=== PATIENT | male | born 1950 | race Caucasian/White ===

== ENCOUNTER → 2018-04-21 | Day surgery (SDC) | payer MEDICARE, OTHER ==
[~2018-04-21] MED LIST: Brimonidine 0.2% Ophth Soln 5 ML Bottle EYERT SCH; Phenylephrine 2.5% Ophth Soln 2 ML Bot EYERT SCH; Tropicamide 1% Ophth Soln 3 ML Bottle EYERT SCH
[2018-04-21] MEDS: Apraclonidine 0.5% Ophth Soln 5 ML Bot EYERT SCH ×2 (11:25→12:02)
[2018-04-21 12:14] VITALS: BP 136/85
== END ==
LOC: JD.SDS 11:18
PROVIDERS: ATTEND Ophthalmology
DX: H26.491 Other secondary cataract, right eye (principal); H40.1132 Primary open-angle glaucoma, bilateral, moderate stage; E78.00 Pure hypercholesterolemia, unspecified; H91.90 Unspecified hearing loss, unspecified ear; Z79.899 Other long term (current) drug therapy

== ENCOUNTER 2021-03-09 10:17 | Emergency (ER) | payer MEDICARE ==
--- NOTE | 2021-03-09 11:47 | CR ---
Abdominal series: PA view of the chest was obtained as well as upright and supine views of the abdomen. Comparison: No prior abdominal or chest x-rays available. Slight areas of density are seen within both mid to lower lungs. Small symmetric nodular densities are seen within both lung bases most likely due to minimal nipple densities. Left-sided infusion port is seen. Sternotomy wires are noted. Heart size is within normal limits. No free air is seen. Bowel gas pattern is normal. No abnormal soft tissue calcifications are seen. Phleboliths are seen within the pelvis. Bony structures show scattered degenerative endplate spurring. Impression: 1. Findings within the chest which are most likely incidental. Follow-up chest x-ray recommended in 4-6 months to make sure findings as described above remain stable. 2. Other findings as noted above. Nothing acute is otherwise seen on abdominal series. Diagnostic code #2
--- NOTE | 2021-03-09 12:28 | EDM.PDOC ---
ED HPI GENERAL MEDICAL PROBLEM - General Chief Complaint: Abdominal Pain Stated Complaint: ABDOMINAL PAIN/CANCER PT Time Seen by Provider: 03/09/21 10:32 Source of Information: Reports: Patient History Limitations: Reports: No Limitations - History of Present Illness INITIAL COMMENTS - FREE TEXT/NARRATIVE: The patient presents with lower abdominal pain and constipation. The patient was recently diagnosed with lung cancer in January and just finished chemo and radiation. He is in fentanyl patch and hydrocodone for an esophageal burn from radiation. He has been taking dulcolax but has not had a bowel movement for a few days. He has abdominal cramping at times. He has some liquid stool at times but nothing else will come out. He has no fever, chills, cough, chest pa in, nausea or vomiting. Onset: Gradual Duration: Day(s): Location: Reports: Abdomen Quality: Reports: Sharp Severity: Severe Improves with: Reports: None Worsens with: Reports: None Associated Symptoms: Reports: No Other Symptoms Abdominal Pain Score (Numeric/FACES): 8 - Related Data Allergies Allergy/AdvReac Type Severity Reaction Status Date / Time brimonidine [From Alphagan P] Allergy Cannot Verified 03/09/21 10:31 Remember Home Meds: Home Meds Albuterol Sulfate [Albuterol Sulfate HFA] 03/09/21 [History] Apixaban [Eliquis] 10 mg PO 03/09/21 [History] CISplatin 100 mg IV 03/09/21 [History] Etoposide [Toposar] 03/09/21 [History] Hydrocodone/Acetaminophen [Hydrocodone-Acetamin 10-325/15] 15 ml PO 03/09/21 [History] Latanoprost [Xalatan] 2.5 ml OP 03/09/21 [History] Losartan/Hydrochlorothiazide [Losartan-HCTZ 50-12.5 MG] 03/09/21 [History] Metoclopramide [Reglan] 5 mg PO Q8H PRN 03/09/21 [History] Ondansetron [Zofran ODT] 8 mg PO 03/09/21 [History] Promethazine [Phenadoz] 12.5 mg .XX 03/09/21 [History] Sildenafil Citrate [Viagra] 03/09/21 [History] Timolol Maleate 5 ml OP 03/09/21 [History] fentaNYL [Fentanyl] 25 mcg TD ASDIRECTED 03/09/21 [History] Past Medical History HEENT History: Reports: Cataract, Glaucoma, Impaired Vision Cardiovascular History: Reports: Bypass, Hypertension Other Cardiovascular History: 2000 bipass x 2 Respiratory History: Reports: SOB Gastrointestinal History: Reports: Chronic Constipation Genitourinary History: Reports: None Musculoskeletal History: Reports: Arthritis, Back Pain, Chronic, Neck Pain, Chronic Neurological History: Reports: None Psychiatric History: Reports: None Endocrine/Metabolic History: Reports: None Hematologic History: Reports: None Immunologic History: Reports: None Oncologic (Cancer) History: Reports: Lung Dermatologic History: Reports: None - Infectious Disease History Infectious Disease History: Reports: Chicken Pox - Past Surgical History Respiratory Surgical History: Reports: Lung Biopsies GI Surgical History: Reports: Appendectomy Social & Family History - Family History Family Medical History: No Pertinent Family History HEENT: Reports: None Cardiac: Reports: CAD, [place] Respiratory: Reports: None GI: Reports: None : Reports: None OBGYN: Reports: None Musculoskeletal: Reports: None Neurological: Reports: None Psychiatric: Reports: None Endocrine/Metabolic: Reports: None Hematologic: Reports: B12 Deficiency Immunologic: Reports: None Oncologic: Reports: Bladder, Lung - Tobacco Use Tobacco Use Status *Q: Former Tobacco User Used Tobacco, but Quit: Yes Month/Year Tobacco Last Used: 01/2021 - Caffeine Use Caffeine Use: Reports: None - Recreational Drug Use Recreational Drug Use: No ED ROS GENERAL - Review of Systems Review Of Systems: See Below Constitutional: Reports: No Symptoms HEENT: Reports: No Symptoms Respiratory: Reports: No Symptoms Cardiovascular: Reports: No Symptoms Endocrine: Reports: No Symptoms GI/Abdominal: Reports: Abdominal Pain, Constipation. Denies: Nausea, Vomiting : Reports: No Symptoms Musculoskeletal: Reports: No Symptoms Skin: Reports: No Symptoms ED EXAM, GI/ABD - Physical Exam Exam: See Below Exam Limited By: No Limitations General Appearance: Alert, No Apparent Distress Ears: Normal External Exam Nose: Normal Inspection Head: Atraumatic, Normocephalic Neck: Normal Inspection Respiratory/Chest: No Respiratory Distress, Lungs Clear, Normal Breath Sounds Cardiovascular: Regular Rate, Rhythm, No Edema, No Murmur GI/Abdominal Exam: Soft, No Organomegaly, No Mass, Tender (Moderate tenderness to the lower abdomen) Course - Vital Signs Last Recorded V/S: Last Vital Signs Temp 96.9 F 04/09/21 10:43 Pulse 100 03/09/21 10:43 Resp 20 03/09/21 10:43 BP 120/89 03/09/21 10:43 Pulse Ox 97 03/09/21 10:43 - Orders/Labs/Meds Orders: Active Orders 24 hr Category Date Time Status Enema [RC] ASDIRECTED Care 03/09/21 11:42 Active Labs: Laboratory Tests 03/09/21 03/09/21 Range/Units 11:19 11:19 WBC 3.31 L (4.23-9.07) K/mm3 RBC 3.91 L (4.63-6.08) M/mm3 Hgb 11.0 L (13.7-17.5) gm/dl Hct 34.3 L (40.1-51.0) % MCV 87.7 (79.0-92.2) fl MCH 28.1 (25.7-32.2) pg MCHC 32.1 L (32.2-35.5) g/dl RDW Std Deviation 52.3 H (35.1-43.9) fL Plt Count 163 (163-337) K/mm3 MPV 9.7 (9.4-12.3) fl Neut % (Auto) 94.0 H (34.0-67.9) % Lymph % (Auto) 2.7 L (21.8-53.1) % [place] % (Auto) 3.0 L (5.3-12.2) % Eos % (Auto) 0 L (0.8-7.0) Baso % (Auto) 0.3 (0.1-1.2) % Neut # (Auto) 3.11 (1.78-5.38) K/mm3 Lymph # (Auto) 0.09 L (1.32-3.57) K/mm3 [place] # (Auto) 0.10 L (0.30-0.82) K/mm3 Eos # (Auto) 0.00 L (0.04-0.54) K/mm3 Baso # (Auto) 0.01 (0.01-0.08) K/mm3 Manual Slide Review Abnormal smear Sodium 136 (136-145) mEq/L Potassium 4.4 (3.5-5.1) mEq/L Chloride 98 (98-107) mEq/L Carbon Dioxide 25 (21-32) mEq/L Anion Gap 17.4 H (5-15) BUN 20 H (7-18) mg/dL Creatinine 1.2 (0.7-1.3) mg/dL Est Cr Clr Drug Dosing 62.87 mL/min Estimated GFR (MDRD) 60 (>60) mL/min BUN/Creatinine Ratio 16.7 (14-18) Glucose 190 H (80-115) mg/dL Calcium 8.7 (8.5-10.1) mg/dL Total Bilirubin 0.8 (0.2-1.0) mg/dL AST 21 (15-37) U/L ALT 38 (16-63) U/L Alkaline Phosphatase 70 (46-116) U/L Total Protein 6.9 (6.4-8.2) g/dl Albumin 3.1 L (3.4-5.0) g/dl Globulin 3.8 gm/dL Albumin/Globulin Ratio 0.8 L (1-2) Lipase 30 L (73-393) U/L - Re-Assessments/Exams Free Text/Narrative Re-Assessment/Exam: 03/09/21 12:26 I ordered a CXR with abdominal series and labs. His CXR shows nothing acute. He has moderate amount of stool. I have ordered a soap suds enema. His WBC was low at 3.31. His Hgb was low at 11. His platelets were normal. His anion gap was elevated at 17.4. His glucose was 190. 03/09/21 13:13 He had great results with the soap suds enema. He feels good. I will discharge him home. Departure - Departure Time of Disposition: 13:15 Disposition: Home, Self-Care 01 Condition: Good Clinical Impression: Constipation Qualifiers: Constipation type: drug induced constipation Qualified Code(s): K59.03 - Drug induced constipation - Discharge Information *PRESCRIPTION DRUG MONITORING PROGRAM REVIEWED*: Not Applicable *COPY OF PRESCRIPTION DRUG MONITORING REPORT IN PATIENT MOMO: Not Applicable Referrals: Kavon Herman MD [Primary Care Provider] - 1 Week Forms: ED Department Discharge Additional Instructions: Drink plenty of fluids. Take the colace as directed. Please return if you are worse. Sepsis Event Note (ED) - Evaluation Sepsis Screening Result: No Definite Risk - Focused Exam Vital Signs: Vital Signs Temp Pulse Resp BP Pulse Ox 03/09/21 10:43 96.9 F 100 20 120/89 97 - My Orders Last 24 Hours: My Active Orders 03/09/21 11:42 Enema [RC] ASDIRECTED - Assessment/Plan Last 24 Hours: My Active Orders 03/09/21 11:42 Enema [RC] ASDIRECTED
[2021-03-09 13:17] VITALS: BP 118/88; PULSE 100
== END 2021-03-09 13:27 | disposition home or self-care (01) ==
LOC: JD.ED 10:17
DX: K59.03 Drug induced constipation (principal); I10 Essential (primary) hypertension; Z79.01 Long term (current) use of anticoagulants; Z79.899 Other long term (current) drug therapy; Z88.8 Allergy status to other drugs, medicaments and biological substances; Z87.891 Personal history of nicotine dependence
CPT/HCPCS: 36415; 74022; 74022-26; 80053; 83690; 85025; 99283; 99283-25

== ENCOUNTER 2021-03-28 22:17 | Emergency (ER) | payer MEDICARE ==
[2021-03-28 22:37] VITALS: BP 137/88; PULSE 106
[2021-03-28] MEDS ORDERED: Sodium Chloride 0.9% 10 ML Syringe FLUSH PRN (23:02)
[2021-03-28] MEDS ORDERED: Albuterol/Ipratropium 3.0-0.5 MG/3 ML Neb Soln NEB ONE (23:02)
--- NOTE | 2021-03-28 23:44 | EDM.PDOC ---
ED HPI GENERAL MEDICAL PROBLEM - General Chief Complaint: Respiratory Problem Stated Complaint: HAS CA/HAVING TROUBLE BREATHING Time Seen by Provider: 03/28/21 22:36 Source of Information: Reports: Patient, Family (), RN Notes Reviewed - History of Present Illness INITIAL COMMENTS - FREE TEXT/NARRATIVE: 71 yr old male comes in feeling very short of breath. He has hx of lung cancer diagnosed 2 to 3 months ago. He has had some chemo. with his last chemo about 3 wks ago and also has had 6 wks of radiation therapy with his last radiation 2 to 3 wks ago. He has been coughing more yesterday and today, mostly nonproductive. The dyspnea started yesterday, worse today. Hx of CAD with bypass about 20 yrs ago. No fever or chills. - Related Data Allergies Allergy/AdvReac Type Severity Reaction Status Date / Time brimonidine [From Alphagan P] Allergy Cannot Verified 03/28/21 22:37 Remember Home Meds: Home Meds Albuterol Sulfate [Albuterol Sulfate HFA] 2 inh INH Q4HR PRN 03/09/21 [History] CISplatin 100 mg IV 03/09/21 [History] Etoposide [Toposar] 03/09/21 [History] Hydrocodone/Acetaminophen [Hydrocodone-Acetamin 10-325/15] 15 ml PO 03/09/21 [History] Losartan/Hydrochlorothiazide [Losartan-HCTZ 50-12.5 MG] 03/09/21 [History] Metoclopramide [Reglan] 5 mg PO Q8H PRN 03/09/21 [History] Ondansetron [Zofran ODT] 8 mg PO 03/09/21 [History] Promethazine [Phenadoz] 12.5 mg .XX 03/09/21 [History] Sildenafil Citrate [Viagra] 03/09/21 [History] Timolol Maleate 5 ml OP DAILY 03/09/21 [History] fentaNYL [Fentanyl] 25 mcg TD ASDIRECTED 03/09/21 [History] Past Medical History HEENT History: Reports: Cataract, Glaucoma, Impaired Vision Cardiovascular History: Reports: Bypass, Hypertension Other Cardiovascular History: 1999 bipass x 2 Respiratory History: Reports: SOB Gastrointestinal History: Reports: Chronic Constipation, GERD Genitourinary History: Reports: None Musculoskeletal History: Reports: Arthritis, Back Pain, Chronic, Neck Pain, Chronic Neurological History: Reports: None Psychiatric History: Reports: None Endocrine/Metabolic History: Reports: None Hematologic History: Reports: None Immunologic History: Reports: Immunosuppression Oncologic (Cancer) History: Reports: Lung Dermatologic History: Reports: None - Infectious Disease History Infectious Disease History: Reports: Chicken Pox - Past Surgical History Respiratory Surgical History: Reports: Lung Biopsies GI Surgical History: Reports: Appendectomy, EGD Social & Family History - Family History Family Medical History: No Pertinent Family History HEENT: Reports: None Cardiac: Reports: CAD, [place] Respiratory: Reports: None GI: Reports: None : Reports: None OBGYN: Reports: None Musculoskeletal: Reports: None Neurological: Reports: None Psychiatric: Reports: None Endocrine/Metabolic: Reports: None Hematologic: Reports: B12 Deficiency Immunologic: Reports: None Oncologic: Reports: Bladder, Lung - Tobacco Use Tobacco Use Status *Q: Former Tobacco User Years of Tobacco use: 57 Packs/Tins Daily: 1 Used Tobacco, but Quit: Yes Month/Year Tobacco Last Used: February 18 - Caffeine Use Caffeine Use: Reports: Coffee - Recreational Drug Use Recreational Drug Use: No ED ROS GENERAL - Review of Systems Review Of Systems: See Below Constitutional: Denies: Fever, Chills, Diaphoresis HEENT: Denies: Sinus Problem, Throat Pain Respiratory: Reports: Shortness of Breath, Cough. Denies: Sputum Cardiovascular: Denies: Chest Pain GI/Abdominal: Denies: Abdominal Pain, Nausea, Vomiting Musculoskeletal: Denies: Shoulder Pain, Arm Pain Skin: Reports: No Symptoms Neurological: Reports: No Symptoms ED EXAM, GENERAL - Physical Exam Exam: See Below General Appearance: Alert, Mild Distress Eye Exam: Bilateral Eye: PERRL Throat/Mouth: Normal Inspection Head: Atraumatic Neck: Supple, Other (no JVD) Respiratory/Chest: No Respiratory Distress, Lungs Clear, Normal Breath Sounds Cardiovascular: Tachycardia GI/Abdominal: Soft, Non-Tender Extremities: Normal Inspection. No: Pedal Edema, Leg Pain, Increased Warmth, Redness Skin Exam: Warm, Dry, No Rash #1 Interpretation EKG Date: 03/28/21 Rhythm: NSR [place]: Normal P-Wave: Present QRS: Normal ST-T: Other (T wave inversion V2.) Course - Vital Signs Last Recorded V/S: Last Vital Signs Temp 96.5 F L 03/28/21 22:31 Pulse 106 H 03/28/21 22:31 Resp 20 03/28/21 22:31 BP 137/88 03/28/21 22:31 Pulse Ox 98 03/28/21 23:14 - Orders/Labs/Meds Orders: Active Orders 24 hr Category Date Time Status EKG 12 Lead [EKG Documentation Completion] [RC] ROUTINE Care 03/28/21 22:25 Active Chest 1V Frontal [CR] Stat Exams 03/28/21 23:00 Taken Peripheral IV Insertion Adult [OM.PC] Stat Oth 03/28/21 23:01 Ordered Labs: Laboratory Tests 03/28/21 03/28/21 03/28/21 Range/Units 23:14 23:40 23:40 WBC 6.36 (4.23-9.07) K/mm3 RBC 3.22 L (4.63-6.08) M/mm3 Hgb 9.2 L D (13.7-17.5) gm/dl Hct 29.5 L (40.1-51.0) % MCV 91.6 D (79.0-92.2) fl MCH 28.6 (25.7-32.2) pg MCHC 31.2 L (32.2-35.5) g/dl RDW Std Deviation 65.2 H (35.1-43.9) fL Plt Count 375 H D (163-337) K/mm3 MPV 9.2 L (9.4-12.3) fl Neut % (Auto) 68.2 H (34.0-67.9) % Lymph % (Auto) 8.5 L (21.8-53.1) % [place] % (Auto) 20.4 H (5.3-12.2) % Eos % (Auto) 0 L (0.8-7.0) Baso % (Auto) 0.5 (0.1-1.2) % Neut # (Auto) 4.34 (1.78-5.38) K/mm3 Lymph # (Auto) 0.54 L (1.32-3.57) K/mm3 [place] # (Auto) 1.30 H (0.30-0.82) K/mm3 Eos # (Auto) 0.00 L (0.04-0.54) K/mm3 Baso # (Auto) 0.03 (0.01-0.08) K/mm3 Manual Slide Review Abnormal smear Sodium (136-145) mEq/L Potassium (3.5-5.1) mEq/L Chloride (98-107) mEq/L Carbon Dioxide (21-32) mEq/L Anion Gap (5-15) BUN (7-18) mg/dL Creatinine (0.7-1.3) mg/dL Est Cr Clr Drug Dosing mL/min Estimated GFR (MDRD) (>60) mL/min BUN/Creatinine Ratio (14-18) Glucose (80-115) mg/dL Calcium (8.5-10.1) mg/dL Total Bilirubin (0.2-1.0) mg/dL AST (15-37) U/L ALT (16-63) U/L Alkaline Phosphatase (46-116) U/L C-Reactive Protein 2.7 H* (<1.0) mg/dL NT-Pro-B Natriuret Pep (0-125) pg/mL Total Protein (6.4-8.2) g/dl Albumin (3.4-5.0) g/dl Globulin gm/dL Albumin/Globulin Ratio (1-2) SARS-CoV-2 RNA (ROSHNI) Negative (NEGATIVE) 03/28/21 03/28/21 Range/Units 23:40 23:40 WBC (4.23-9.07) K/mm3 RBC (4.63-6.08) M/mm3 Hgb (13.7-17.5) gm/dl Hct (40.1-51.0) % MCV (79.0-92.2) fl MCH (25.7-32.2) pg MCHC (32.2-35.5) g/dl RDW Std Deviation (35.1-43.9) fL Plt Count (163-337) K/mm3 MPV (9.4-12.3) fl Neut % (Auto) (34.0-67.9) % Lymph % (Auto) (21.8-53.1) % [place] % (Auto) (5.3-12.2) % Eos % (Auto) (0.8-7.0) Baso % (Auto) (0.1-1.2) % Neut # (Auto) (1.78-5.38) K/mm3 Lymph # (Auto) (1.32-3.57) K/mm3 [place] # (Auto) (0.30-0.82) K/mm3 Eos # (Auto) (0.04-0.54) K/mm3 Baso # (Auto) (0.01-0.08) K/mm3 Manual Slide Review Sodium 133 L (136-145) mEq/L Potassium 4.1 (3.5-5.1) mEq/L Chloride 97 L (98-107) mEq/L Carbon Dioxide 26 (21-32) mEq/L Anion Gap 14.1 (5-15) BUN 14 (7-18) mg/dL Creatinine 0.9 (0.7-1.3) mg/dL Est Cr Clr Drug Dosing 81.34 mL/min Estimated GFR (MDRD) > 60 (>60) mL/min BUN/Creatinine Ratio 15.6 (14-18) Glucose 106 (80-115) mg/dL Calcium 9.0 (8.5-10.1) mg/dL Total Bilirubin 0.2 (0.2-1.0) mg/dL AST 19 (15-37) U/L ALT 19 (16-63) U/L Alkaline Phosphatase 70 (46-116) U/L C-Reactive Protein (<1.0) mg/dL NT-Pro-B Natriuret Pep 554 H (0-125) pg/mL Total Protein 6.6 (6.4-8.2) g/dl Albumin 2.8 L (3.4-5.0) g/dl Globulin 3.8 gm/dL Albumin/Globulin Ratio 0.7 L (1-2) SARS-CoV-2 RNA (ROSHNI) (NEGATIVE) Meds: Medications Discontinued Medications Generic Name Dose Route Start Last Admin Trade Name Freq PRN Reason Stop Dose Admin Albuterol/Ipratropium 3 ml 03/28/21 23:02 03/28/21 23:13 Albuterol/Ipratropium 3.0-0.5 Mg/3 Ml Neb Soln NEB 03/28/21 23:03 3 ml ONETIME ONE Administration Methylprednisolone Sodium Succinate 125 mg 03/29/21 00:42 03/29/21 00:50 Methylprednisolone Sodium Succinate 125 Mg/2 Ml Sdv IVPUSH 03/29/21 00:43 125 mg ONETIME ONE Administration Sodium Chloride 10 ml 03/28/21 23:02 03/29/21 00:52 Sodium Chloride 0.9% 10 Ml Syringe FLUSH 10 ml ASDIRECTED PRN Administration Keep Vein Open - Re-Assessments/Exams Free Text/Narrative Re-Assessment/Exam: 03/29/21 02:05 CXR does not show apparent acute infiltrate. WBC nl. Hgb down to 9.3 from 11 about 3 1/2 wks ago. Suspect this is chemo effect. No sx of GI bleeding. BNP slightly elevated but I do not see CHF on his CXR. No peripheral leg edema or other leg findings. No wheezing on exam. Have given a duoneb Rx and that has helped him some. Sats running 95 to 98 % at time of reexam. He sees his Radiation Oncologist and Oncologist at [place] at around noon today. He does feel up to going home. Have also give solumedrol 125 mg IV. He has an albuterol inhaler to use at home. Discharge instr. as documented. Departure - Departure Time of Disposition: 00:43 Disposition: Home, Self-Care 01 Condition: Fair Clinical Impression: Dyspnea, Anemia, Hx of cancer of lung - Discharge Information Instructions: Shortness of Breath, Adult, [id number] Referrals: Kavon Herman MD [Primary Care Provider] - Forms: ED Department Discharge Additional Instructions: Continue current medications. You have been given a duoneb treatment and also solumedrol 125 mg IV while here in the ED. Continue to use your albuterol inhaler q 3 to 4 hr as needed. See your medical providers in [place] today as planned. Your CXR has been pushed electronically to [facility]. Return to ED as needed. Sepsis Event Note (ED) - Evaluation Sepsis Screening Result: No Definite Risk - Focused Exam Vital Signs: Vital Signs Temp Pulse Resp BP Pulse Ox Pulse Ox 03/28/21 23:14 98 03/28/21 22:31 96.5 F L 106 H 20 137/88 96 - My Orders Last 24 Hours: My Active Orders 03/28/21 22:25 EKG 12 Lead [EKG Documentation Completion] [RC] ROUTINE 03/28/21 23:00 Chest 1V Frontal [CR] Stat 03/28/21 23:01 Peripheral IV Insertion Adult [OM.PC] Stat - Assessment/Plan Last 24 Hours: My Active Orders 03/28/21 22:25 EKG 12 Lead [EKG Documentation Completion] [RC] ROUTINE 03/28/21 23:00 Chest 1V Frontal [CR] Stat 03/28/21 23:01 Peripheral IV Insertion Adult [OM.PC] Stat
[2021-03-29] MEDS ORDERED: methylPREDNISolone Sodium Succinate 125 MG/2 ML SDV IVPUSH ONE (00:42)
--- NOTE | 2021-03-29 08:01 | CR ---
Chest: Portable view of the chest was obtained. Comparison: Previous chest x-ray obtained during abdominal series dated 03/09/21. Slight increased lung markings are seen within the left lung base. Small linear density within the right midlung which is stable from prior study most likely representing a scar. Left-sided infusion port is seen. Heart size and mediastinum are stable. Bony structures show nothing acute. Impression: 1. Slight increased lung markings within the left lung base most likely representing focal bronchitis or very early pneumonia. 2. Other findings as noted above which are stable. Diagnostic code #3
== END 2021-03-29 01:03 | disposition home or self-care (01) ==
LOC: JD.ED 22:17
DX: D64.9 Anemia, unspecified (principal); I10 Essential (primary) hypertension; Z79.899 Other long term (current) drug therapy; Z85.118 Personal history of other malignant neoplasm of bronchus and lung; Z88.8 Allergy status to other drugs, medicaments and biological substances; Z87.891 Personal history of nicotine dependence; Z20.822 Contact with and (suspected) exposure to COVID-19
CPT/HCPCS: 36415; 71045; 80053; 83880; 85025; 86140; 93005; 94640; 96374; 99285; J2930; U0002; 93010; 99284; J7620-GY

== ENCOUNTER 2021-10-22 09:16 | Emergency (ER) | payer MEDICARE ==
[2021-10-22] MEDS ORDERED: Ondansetron 4 MG/2 ML SDV IVPUSH ONE (09:58)
[2021-10-22] MEDS ORDERED: Sodium Chloride 0.9% 1,000 ML IV SCH (10:00)
--- NOTE | 2021-10-22 11:04 | CR ---
Chest: Portable view of the chest was obtained. Comparison: Prior chest x-ray of 03/28/21. Diffuse increased density is seen within the left chest. This has worsened from prior exam. Right lung is clear. Sternotomy is noted. Heart size appears within normal limits. Left-sided infusion catheter is seen. Impression: 1. Increasing density throughout the left chest which has worsened from prior study. Uncertain if this represents treatment of underlying lung process or represents diffuse pneumonia. Please correlate. 2. Prior sternotomy. 3. Right lung is clear. Diagnostic code #3
[2021-10-22] MEDS ORDERED: Sodium Chloride 0.9% 10 ML Syringe FLUSH PRN (11:23)
[2021-10-22] MEDS ORDERED: Iopamidol 755 Mg/ML 100 ML Bottle IVPUSH ONE (11:23)
[2021-10-22] MEDS ORDERED: Sodium Chloride 0.9% 100 ML IV SCH (11:30)
--- NOTE | 2021-10-22 12:06 | CT ---
CT chest Technique: Multiple axial sections through the chest were obtained. Intravenous contrast was utilized. Study has been performed as a pulmonary angiogram protocol. Comparison: No prior chest CT study, prior chest x-ray performed earlier on the same day (10:08 AM). Findings: Soft tissue density is noted within the left hilar region. Pulmonary arteries as well as adjacent bronchi pass through this density. Pulmonary arteries show no filling defects to indicate pulmonary embolism. Bronchi show diffuse narrowing as they pass through this density. Findings are presumably due to focal area of adenopathy. There is mild increased density seen adjacent anteriorly to the major fissure as well as within the left lung base. Left lung base findings are suspicious for possible metastatic disease. Small left-sided pleural effusion is seen. Thoracic aorta shows atherosclerotic change with no aneurysm. Infusion catheter is seen entering from the left side with tip terminating within the superior vena cava. Right lung shows emphysematous change. No acute parenchymal change is seen within the right lung. No right sided nodule is seen within the lungs. Visualized upper abdominal structures show a small cyst within the left kidney measuring 2.3 cm. Bone window settings were reviewed which show scattered degenerative spurring within the spine with no acute osseous abnormality. Impression: 1. Soft tissue density within the left hilar region surrounding the pulmonary arteries and adjacent bronchi. No findings of pulmonary embolism are seen. Bronchi are narrowed because of this abnormality. This finding presumably represents diffuse adenopathy. 2. Small left-sided pleural effusion is seen. 3. Parenchymal density is noted adjacent to the major fissure located anteriorly which could represent metastatic disease as well as change from previous therapy. Density within the left lung base is more suspicious for metastatic disease. 4. Emphysematous change is seen. No acute parenchymal abnormality is seen within the right chest. 5. Incidental cyst within the left kidney. Diagnostic code #9
--- NOTE | 2021-10-22 13:07 | EDM.PDOC ---
ED HPI GENERAL MEDICAL PROBLEM - General Chief Complaint: General Stated Complaint: WEAK DIZZY Time Seen by Provider: 10/22/21 09:35 Source of Information: Reports: Patient History Limitations: Reports: No Limitations - History of Present Illness INITIAL COMMENTS - FREE TEXT/NARRATIVE: The patient presents with weakness and dizziness. This has been going on for a few days. He has lung cancer and got chemo last week and a few days later he starting not feeling well. He has nausea and vomiting. He has no fever or chills. He has been coughing. He also has been coughing up blood. Yesterday was the worst. He has no chest pain. He does have some shortness of breath at times. He has no abdominal pain or diarrhea. His oncologist is at [facility]. Onset: Gradual Duration: Day(s): Severity: Moderate Improves with: Reports: None Worsens with: Reports: None Associated Symptoms: Reports: Cough, Nausea/Vomiting, Shortness of Breath. Denies: Chest Pain, Fever/Chills, Headaches - Related Data Allergies Allergy/AdvReac Type Severity Reaction Status Date / Time brimonidine [From Alphagan P] Allergy Cannot Verified 10/22/21 09:40 Remember Home Meds: Home Meds Albuterol Sulfate [Albuterol Sulfate HFA] 2 inh INH Q4HR PRN 03/09/21 [History] CISplatin 100 mg IV 03/09/21 [History] Etoposide [Toposar] 03/09/21 [History] Hydrocodone/Acetaminophen [Hydrocodone-Acetamin 10-325/15] 15 ml PO 03/09/21 [History] Losartan/Hydrochlorothiazide [Losartan-HCTZ 50-12.5 MG] 03/09/21 [History] Metoclopramide [Reglan] 5 mg PO Q8H PRN 03/09/21 [History] Ondansetron [Zofran ODT] 8 mg PO 03/09/21 [History] Promethazine [Phenadoz] 12.5 mg .XX 03/09/21 [History] Sildenafil Citrate [Viagra] 03/09/21 [History] Timolol Maleate 5 ml OP DAILY 03/09/21 [History] fentaNYL [Fentanyl] 25 mcg TD ASDIRECTED 03/09/21 [History] Past Medical History HEENT History: Reports: Cataract, Glaucoma, Impaired Vision Cardiovascular History: Reports: Bypass, Hypertension Other Cardiovascular History: 1999 bipass x 2 Respiratory History: Reports: SOB Gastrointestinal History: Reports: Chronic Constipation, GERD Genitourinary History: Reports: None Musculoskeletal History: Reports: Arthritis, Back Pain, Chronic, Neck Pain, Chronic Neurological History: Reports: None Psychiatric History: Reports: None Endocrine/Metabolic History: Reports: None Hematologic History: Reports: None Immunologic History: Reports: Immunosuppression Oncologic (Cancer) History: Reports: Lung Dermatologic History: Reports: None - Infectious Disease History Infectious Disease History: Reports: Chicken Pox - Past Surgical History Respiratory Surgical History: Reports: Lung Biopsies GI Surgical History: Reports: Appendectomy, EGD Social & Family History - Family History Family Medical History: No Pertinent Family History HEENT: Reports: None Cardiac: Reports: CAD, [place] Respiratory: Reports: None GI: Reports: None : Reports: None OBGYN: Reports: None Musculoskeletal: Reports: None Neurological: Reports: None Psychiatric: Reports: None Endocrine/Metabolic: Reports: None Hematologic: Reports: B12 Deficiency Immunologic: Reports: None Oncologic: Reports: Bladder, Lung - Tobacco Use Tobacco Use Status *Q: Former Tobacco User Used Tobacco, but Quit: Yes Month/Year Tobacco Last Used: January 2021 - Caffeine Use Caffeine Use: Reports: Coffee ED ROS GENERAL - Review of Systems Review Of Systems: See Below Constitutional: Reports: Malaise, Weakness, Fatigue. Denies: Fever, Chills HEENT: Reports: No Symptoms Respiratory: Reports: Shortness of Breath, Cough, Hemoptysis Cardiovascular: Reports: No Symptoms Endocrine: Reports: Fatigue GI/Abdominal: Reports: Nausea, Vomiting. Denies: Abdominal Pain : Reports: No Symptoms Musculoskeletal: Reports: No Symptoms Skin: Reports: No Symptoms ED EXAM, GENERAL - Physical Exam Exam: See Below Exam Limited By: No Limitations General Appearance: Alert, No Apparent Distress Ears: Normal External Exam Nose: Normal Inspection Head: Atraumatic, Normocephalic Neck: Normal Inspection Respiratory/Chest: No Respiratory Distress, Decreased Breath Sounds Cardiovascular: Regular Rate, Rhythm, No Edema, No Murmur GI/Abdominal: Soft, Non-Tender, No Organomegaly, No Mass Back Exam: Normal Inspection Extremities: Normal Inspection Neurological: Alert, Oriented, No Motor/Sensory Deficits #1 Interpretation EKG Date: 10/22/21 Time: 09:30 Rhythm: NSR Rate (Beats/Min): 75 [place]: Normal P-Wave: Present QRS: Normal ST-T: Normal QT: Normal Course - Vital Signs Last Recorded V/S: Last Vital Signs Temp 97.3 F 10/22/21 09:37 Pulse 70 10/22/21 14:26 Resp 18 10/22/21 14:26 BP 95/69 10/22/21 14:26 Pulse Ox 93 L 10/22/21 14:26 - Orders/Labs/Meds Orders: Active Orders 24 hr Category Date Time Status Cardiac Monitoring [RC] . DIRECTED Care 10/22/21 09:59 Active Implanted Port Access [RC] ONETIME Care 10/22/21 10:00 Active Vital Signs [RC] Q15M Care 10/22/21 13:56 Active EPINEPHrine [Adrenalin] Med 10/22/21 13:56 Active 0.3 mg IM ASDIRECTED PRN Famotidine [Pepcid] Med 10/22/21 13:56 Active 20 mg IVPUSH ASDIRECTED PRN Sodium Chloride 0.9% [Normal Saline] 1,000 ml Med 10/22/21 10:00 Active IV .BOLUS Sodium Chloride 0.9% [Normal Saline] 100 ml Med 10/22/21 11:30 Active IV ASDIRECTED Sodium Chloride 0.9% [Saline Flush] Med 10/22/21 11:23 Active 10 ml FLUSH ONETIME PRN Sodium Chloride 0.9% [Saline Flush] Med 10/22/21 14:00 Active 30 ml FLUSH ASDIRECTED diphenhydrAMINE [Benadryl] Med 10/22/21 13:56 Active 50 mg IVPUSH ASDIRECTED PRN methylPREDNISolone Sod Succ [Solu-MEDROL] Med 10/22/21 13:56 Active 125 mg IVPUSH ASDIRECTED PRN ED Antiemetic Medication Reflex [OM.PC] Stat Oth 10/22/21 09:59 Ordered Medication Orders Diphenhydramine HCl (Diphenhydramine 50 Mg/Ml Sdv) 50 mg IVPUSH ASDIRECTED PRN PRN Reason: hypersensitivity reaction Epinephrine HCl (Epinephrine 1 Mg/Ml Sdv) 0.3 mg IM ASDIRECTED PRN PRN Reason: hypersensitivity reaction Famotidine (Famotidine 20 Mg/2 Ml Sdv) 20 mg IVPUSH ASDIRECTED PRN PRN Reason: hypersensitivity reaction Sodium Chloride (Normal Saline) 1,000 mls @ 1,000 mls/hr IV .BOLUS KAYLA Last Admin: 10/22/21 10:24 Dose: 1,000 mls/hr Documented by: CHENG Sodium Chloride (Normal Saline) 100 mls @ 75 mls/hr IV ASDIRECTED KAYLA Last Admin: 10/22/21 11:26 Dose: 75 mls/hr Documented by: AAYUSH Methylprednisolone Sodium Succinate (Methylprednisolone Sodium Succinate 125 Mg/2 Ml Sdv) 125 mg IVPUSH ASDIRECTED PRN PRN Reason: hypersensitivity reaction Sodium Chloride (Sodium Chloride 0.9% 10 Ml Syringe) 10 ml FLUSH ONETIME PRN PRN Reason: IV FLUSH Last Admin: 10/22/21 11:25 Dose: 10 ml Documented by: AAYUSH Sodium Chloride (Sodium Chloride 0.9% 10 Ml Syringe) 30 ml FLUSH ASDIRECTED [facility] Labs: Laboratory Tests 10/22/21 10/22/21 10/22/21 Range/Units 10:13 10:13 10:13 WBC 2.32 L* (4.23-9.07) K/mm3 RBC 3.57 L (4.63-6.08) M/mm3 Hgb 10.3 L (13.7-17.5) gm/dl Hct 31.7 L (40.1-51.0) % MCV 88.8 (79.0-92.2) fl MCH 28.9 (25.7-32.2) pg MCHC 32.5 (32.2-35.5) g/dl RDW Std Deviation 45.2 H (35.1-43.9) fL Plt Count 226 D (163-337) K/mm3 MPV 9.6 (9.4-12.3) fl Neut % (Auto) 80.2 H (34.0-67.9) % Lymph % (Auto) 11.2 L (21.8-53.1) % [place] % (Auto) 6.9 (5.3-12.2) % Eos % (Auto) 0.9 (0.8-7.0) Baso % (Auto) 0.4 (0.1-1.2) % Neut # (Auto) 1.86 (1.78-5.38) K/mm3 Lymph # (Auto) 0.26 L (1.32-3.57) K/mm3 [place] # (Auto) 0.16 L (0.30-0.82) K/mm3 Eos # (Auto) 0.02 L (0.04-0.54) K/mm3 Baso # (Auto) 0.01 (0.01-0.08) K/mm3 D-Dimer, Quantitative 1.73 H (0.19-0.50) mg/L Sodium 126 L (136-145) mEq/L Potassium 4.3 (3.5-5.1) mEq/L Chloride 93 L (98-107) mEq/L Carbon Dioxide 24 (21-32) mEq/L Anion Gap 13.3 (5-15) BUN 20 H (7-18) mg/dL Creatinine 1.0 (0.7-1.3) mg/dL Est Cr Clr Drug Dosing 74.33 mL/min Estimated GFR (MDRD) > 60 (>60) mL/min BUN/Creatinine Ratio 20.0 H (14-18) Glucose 105 H (70-99) mg/dL Calcium 8.8 (8.5-10.1) mg/dL Magnesium 2.2 (1.8-2.4) mg/dL Total Bilirubin 0.5 (0.2-1.0) mg/dL AST 58 H (15-37) U/L ALT 71 H (16-63) U/L Alkaline Phosphatase 77 (46-116) U/L Troponin I < 0.017 (0.00-0.056) ng/mL Total Protein 7.0 (6.4-8.2) g/dl Albumin 2.7 L (3.4-5.0) g/dl Globulin 4.3 gm/dL Albumin/Globulin Ratio 0.6 L (1-2) SARS-CoV-2 RNA (ROSHNI) (NEGATIVE) 10/22/21 Range/Units 10:51 WBC (4.23-9.07) K/mm3 RBC (4.63-6.08) M/mm3 Hgb (13.7-17.5) gm/dl Hct (40.1-51.0) % MCV (79.0-92.2) fl MCH (25.7-32.2) pg MCHC (32.2-35.5) g/dl RDW Std Deviation (35.1-43.9) fL Plt Count (163-337) K/mm3 MPV (9.4-12.3) fl Neut % (Auto) (34.0-67.9) % Lymph % (Auto) (21.8-53.1) % [place] % (Auto) (5.3-12.2) % Eos % (Auto) (0.8-7.0) Baso % (Auto) (0.1-1.2) % Neut # (Auto) (1.78-5.38) K/mm3 Lymph # (Auto) (1.32-3.57) K/mm3 [place] # (Auto) (0.30-0.82) K/mm3 Eos # (Auto) (0.04-0.54) K/mm3 Baso # (Auto) (0.01-0.08) K/mm3 D-Dimer, Quantitative (0.19-0.50) mg/L Sodium (136-145) mEq/L Potassium (3.5-5.1) mEq/L Chloride (98-107) mEq/L Carbon Dioxide (21-32) mEq/L Anion Gap (5-15) BUN (7-18) mg/dL Creatinine (0.7-1.3) mg/dL Est Cr Clr Drug Dosing mL/min Estimated GFR (MDRD) (>60) mL/min BUN/Creatinine Ratio (14-18) Glucose (70-99) mg/dL Calcium (8.5-10.1) mg/dL Magnesium (1.8-2.4) mg/dL Total Bilirubin (0.2-1.0) mg/dL AST (15-37) U/L ALT (16-63) U/L Alkaline Phosphatase (46-116) U/L Troponin I (0.00-0.056) ng/mL Total Protein (6.4-8.2) g/dl Albumin (3.4-5.0) g/dl Globulin gm/dL Albumin/Globulin Ratio (1-2) SARS-CoV-2 RNA (ROSHNI) Positive H (NEGATIVE) Meds: Medications Generic Name Dose Route Start Last Admin Trade Name Freq PRN Reason Stop Dose Admin Diphenhydramine HCl 50 mg 10/22/21 13:56 Diphenhydramine 50 Mg/Ml Sdv IVPUSH ASDIRECTED PRN hypersensitivity reaction Epinephrine HCl 0.3 mg 10/22/21 13:56 Epinephrine 1 Mg/Ml Sdv IM ASDIRECTED PRN hypersensitivity reaction Famotidine 20 mg 10/22/21 13:56 Famotidine 20 Mg/2 Ml Sdv IVPUSH ASDIRECTED PRN hypersensitivity reaction Sodium Chloride 1,000 mls @ 1,000 mls/hr 10/22/21 10:00 10/22/21 10:24 Normal Saline IV 1,000 mls/hr .BOLUS KAYLA Administration Sodium Chloride 100 mls @ 75 mls/hr 10/22/21 11:30 10/22/21 11:26 Normal Saline IV 75 mls/hr ASDIRECTED KAYLA Administration Methylprednisolone Sodium Succinate 125 mg 10/22/21 13:56 Methylprednisolone Sodium Succinate 125 Mg/2 Ml Sdv IVPUSH ASDIRECTED PRN hypersensitivity reaction Sodium Chloride 10 ml 10/22/21 11:23 10/22/21 11:25 Sodium Chloride 0.9% 10 Ml Syringe FLUSH 10 ml ONETIME PRN Administration IV FLUSH Sodium Chloride 30 ml 10/22/21 14:00 Sodium Chloride 0.9% 10 Ml Syringe FLUSH ASDIRECTED KAYLA Discontinued Medications Generic Name Dose Route Start Last Admin Trade Name Freq PRN Reason Stop Dose Admin Bamlanivimab 700 mg/ 310 mls @ 310 mls/hr 10/22/21 14:30 10/22/21 14:24 Etesevimab 1,400 mg/ Sodium IV 10/22/21 15:29 310 mls/hr Chloride ONETIME ONE Administration Iopamidol 100 ml 10/22/21 11:23 10/22/21 11:25 Iopamidol 755 Mg/Ml 100 Ml Bottle IVPUSH 10/22/21 11:24 100 ml ONETIME ONE Administration Ondansetron HCl 4 mg 10/22/21 09:58 10/22/21 10:24 Ondansetron 4 Mg/2 Ml Sdv IVPUSH 10/22/21 09:59 4 mg ONETIME ONE Administration - Re-Assessments/Exams Free Text/Narrative Re-Assessment/Exam: 10/22/21 13:10 I ordered an IV NS 1L bolus, zofran 4mg IV, labs, EKG, CXR and labs. His EKG shows a NSR with no acute changes. His CXR shows increasing density throughout the left chest which has worsened from prior study. Uncertain if this represents treatment of underlying lung process or represents diffuse pneumonia. Please correlate. Prior sternotomy. Right lung is clear. His WBC is low at 2.32. His Hgb is low at 10.3. His Na is low at 126. His AST is elevated at 58. His ALT is elevated at 71. His troponin is negative. He is COVID 19 positive. I have ordered a CT angio of his chest. 10/22/21 13:[address] angio of his chest shows soft tissue density within the left hilar region surrounding the pulmonary arteries and adjacent bronchi. No findings of pulmonary embolism are seen. Bronchi are narrowed because of this abnormality. This finding presumably represents diffuse adenopathy. Small left sided pleural effusion is seen. Parenchymal density is noted adjacent to the major fissure located anteriorly which could represent metastatic disease as well as change from previous therapy. Density within the left lung base is more suspicious for metastatic disease. Emphysematous change is seen. No acute parenchymal abnormality is seen within the right chest. Incidental cyst within the left kidney. He has no COVID pneumonia. He could benefit from the monoclonal antibodies. He wanted me to check with his oncologist. I called [facility] in [place] and talked with his oncologist Dr Zhang and he recommended we give him the monoclonal antibodies. I have ordered them and I will discharge him home. Departure - Departure Time of Disposition: 15:45 Disposition: Home, Self-Care 01 Condition: Good Clinical Impression: Hx of cancer of lung, COVID - Discharge Information *PRESCRIPTION DRUG MONITORING PROGRAM REVIEWED*: Not Applicable *COPY OF PRESCRIPTION DRUG MONITORING REPORT IN PATIENT MOMO: Not Applicable Referrals: Kavon Herman MD [Primary Care Provider] - Forms: ED Department Discharge Additional Instructions: Take your medications as prescribed. Call Dr Zhang's office this week for a follow up. Please return if you are worse. Sepsis Event Note (ED) - Evaluation Sepsis Screening Result: No Definite Risk - Focused Exam Vital Signs: Vital Signs Temp Pulse Resp BP Pulse Ox 10/22/21 14:26 70 18 95/69 93 L 10/22/21 09:37 97.3 F 80 16 108/72 94 L - My Orders Last 24 Hours: My Active Orders 10/22/21 09:59 Cardiac Monitoring [RC] . DIRECTED ED Antiemetic Medication Reflex [OM.PC] Stat 10/22/21 10:00 Implanted Port Access [RC] ONETIME Sodium Chloride 0.9% [Normal Saline] 1,000 ml IV .BOLUS 10/22/21 11:23 Sodium Chloride 0.9% [Saline Flush] 10 ml FLUSH ONETIME PRN 10/22/21 11:30 Sodium Chloride 0.9% [Normal Saline] 100 ml IV ASDIRECTED 10/22/21 13:56 Vital Signs [RC] Q15M EPINEPHrine [Adrenalin] 0.3 mg IM ASDIRECTED PRN Famotidine [Pepcid] 20 mg IVPUSH ASDIRECTED PRN diphenhydrAMINE [Benadryl] 50 mg IVPUSH ASDIRECTED PRN methylPREDNISolone Sod Succ [Solu-MEDROL] 125 mg IVPUSH ASDIRECTED PRN 10/22/21 14:00 Sodium Chloride 0.9% [Saline Flush] 30 ml FLUSH ASDIRECTED - Assessment/Plan Last 24 Hours: My Active Orders 10/22/21 09:59 Cardiac Monitoring [RC] . DIRECTED ED Antiemetic Medication Reflex [OM.PC] Stat 10/22/21 10:00 Implanted Port Access [RC] ONETIME Sodium Chloride 0.9% [Normal Saline] 1,000 ml IV .BOLUS 10/22/21 11:23 Sodium Chloride 0.9% [Saline Flush] 10 ml FLUSH ONETIME PRN 10/22/21 11:30 Sodium Chloride 0.9% [Normal Saline] 100 ml IV ASDIRECTED 10/22/21 13:56 Vital Signs [RC] Q15M EPINEPHrine [Adrenalin] 0.3 mg IM ASDIRECTED PRN Famotidine [Pepcid] 20 mg IVPUSH ASDIRECTED PRN diphenhydrAMINE [Benadryl] 50 mg IVPUSH ASDIRECTED PRN methylPREDNISolone Sod Succ [Solu-MEDROL] 125 mg IVPUSH ASDIRECTED PRN 10/22/21 14:00 Sodium Chloride 0.9% [Saline Flush] 30 ml FLUSH ASDIRECTED
[2021-10-22] MEDS ORDERED: Famotidine 20 MG/2 ML SDV IVPUSH PRN (13:56)
[2021-10-22] MEDS ORDERED: diphenhydrAMINE 50 MG/ML SDV IVPUSH PRN (13:56)
[2021-10-22] MEDS ORDERED: EPINEPHrine 1 MG/ML SDV IM PRN (13:56)
[2021-10-22] MEDS ORDERED: methylPREDNISolone Sodium Succinate 125 MG/2 ML SDV IVPUSH PRN (13:56)
[2021-10-22] MEDS ORDERED: Sodium Chloride 0.9% 10 ML Syringe FLUSH SCH (14:00)
[2021-10-22 16:14] VITALS: BP 104/64; PULSE 78
== END 2021-10-22 16:33 | disposition home or self-care (01) ==
LOC: JD.ED 09:16
DX: U07.1 COVID-19 (principal); I10 Essential (primary) hypertension; Z87.891 Personal history of nicotine dependence; Z85.118 Personal history of other malignant neoplasm of bronchus and lung; Z88.8 Allergy status to other drugs, medicaments and biological substances; Z79.899 Other long term (current) drug therapy
CPT/HCPCS: 36415; 71045; 71275; 80053; 83735; 84484; 85025; 85379; 93005; 96374; 99284; J1642; J2405; J7030; J7050; M0245; Q0245; Q9967; U0002; 93010; 99285